=== PATIENT | male | born 1960 | race Caucasian/White ===

== ENCOUNTER 2022-10-30 16:05 | Emergency (ER) | payer MEDICAID ==
[~2022-10-30] VITALS: Ht 167.6 cm; Wt 66.7 kg
[2022-10-30 16:40] VITALS: BP 126/70; PULSE 107; RESP 22; TEMP 97.5; O2SAT 97
--- NOTE | 2022-10-30 16:54 | NUR ---
PT AMBULATED TO BED 11 WITH DAUGHTER
[2022-10-30] MEDS ORDERED: NACL 0.9% 1,000 ML IV ONE ×3 (16:55→21:25)
[2022-10-30 17:24] LABS: BASOPHILS % (AUTO) 0.3 % (0.0-2.0); HEMATOCRIT 35.6 % (36-52); HEMOGLOBIN 12.3 g/dL (12.0-18.0); LYMPHOCYTES % (AUTO) 14.3 % (20.5-51.1); MEAN CORPUSCULAR HEMOGLOBIN 34 pg (27-31); MEAN CORPUSCULAR HGB CONC 35 g/dL (33-37); MEAN CORPUSCULAR VOLUME 97.3 fL (80-94); MONOCYTES # (AUTO) 0.2 K/uL (0.8-1.0); MONOCYTES % (AUTO) 3.5 % (1.7-9.3); NEUTROPHILS # (AUTO) 5.5 K/uL (1.8-7.7); NEUTROPHILS % (AUTO) 81.9 % (42.2-75.2); PLATELET COUNT (AUTO) 113 K/uL (140-450); RED BLOOD CELL COUNT(AUTO) 3.66 MIL/uL (4.20-6.10); RED CELL DISTRIBUTION WIDTH 12.1 % (11.6-13.7); WHITE BLOOD COUNT (AUTO) 6.7 K/uL (4.8-10.8)
[2022-10-30 17:56] LABS: ANION GAP 17.4 (8-16); ASPARTATE AMINOTRANSFERASE 56 U/L (15-37); CARBON DIOXIDE 21.7 mmol/L (21-32); CHLORIDE 96 mmol/L (98-107); CREATININE 0.9 mg/dL (0.6-1.3); GFR ARICAN-AMERICAN 111 mL/min (>90); LIPASE 88 U/L (73-393); POTASSIUM 5.1 mmol/L (3.5-5.1); SODIUM SERUM 130 mmol/L (136-145); UREA NITROGEN, BLOOD 41 mg/dL (7-18)
[2022-10-30 18:03] LABS: ACETONE, SERUM NEGATIVE (NEGATIVE); GLUCOSE 435 mg/dL (74-106)
[2022-10-30] MEDS ORDERED: INSULIN REGULAR, HUMAN 100 UNIT/ML VIAL IVP ONE ×2 (18:55→21:25)
[2022-10-30 19:09] LABS: APPEARANCE,URINE CLEAR (CLEAR); BILIRUBIN,URINE NEGATIVE (NEGATIVE); BLOOD, URINE NEGATIVE (NEGATIVE); COLOR,URINE YELLOW (YELLOW); LEUKOCYTE ESTERASE ,URINE NEGATIVE (NEGATIVE); NITRITE, URINE NEGATIVE (NEGATIVE); UGLUCOSE 3+ (NEGATIVE)
--- NOTE | 2022-10-30 19:45 | NUR ---
ASSUMED CARE OF PT AT THIS TIME. PT IN POSITION OF COMFORT. A&OX4, RR EVEN AND UNLABORED. PT DENIES ANY PAIN OR NEEDS AT THIS TIME. FAMILY AT BEDSIDE. VSS.
--- NOTE | 2022-10-30 21:42 | NUR ---
PT RESTING, FAMILY AT BEDSIDE. CALL LIGHT WITHIN REACH. DENIES ANY PAIN OR NEEDS AT THIS TIME.
[2022-10-30] MEDS ORDERED: METF-1243 PO (22:52)
[2022-10-30 22:59] VITALS: BP 128/81; PULSE 108; RESP 16; TEMP 98; O2SAT 96
--- NOTE | 2022-10-30 22:59 | NUR ---
Patient discharged with v/s stable. Written and verbal after care instructions given and explained. Patient alert, oriented and verbalized understanding of instructions. Ambulatory with . All questions addressed prior to discharge. ID band removed. Patient advised to follow up with PMD. Rx of METFORMIN given. Patient educated on indication of medication including possible reaction and side effects. Opportunity to ask questions provided and answered.
== END 2022-10-30 22:59 | disposition home or self-care (01) ==
LOC: MED 16:05
DX: E11.65 Type 2 diabetes mellitus with hyperglycemia (principal); Z79.84 Long term (current) use of oral hypoglycemic drugs
CPT/HCPCS: 36415; 71045; 80053; 81003; 82009; 82803; 83690; 84484; 85025; 93005; 96361; 96372; 96374; 99285; G0482; J1815; J7030

== ENCOUNTER 2022-12-10 20:55 | Inpatient (IN) | payer MEDICAID ==
[~2022-12-10] VITALS: Ht 160 cm; Wt 68.9 kg
[~2022-12-10 20:55] MED LIST: METF-1243 PO
[2022-12-10 22:26] VITALS: BP 138/83; PULSE 94; RESP 20; TEMP 97.5; O2SAT 98
[2022-12-11 00:14] LABS: BASOPHILS % (AUTO) 0.3 % (0.0-2.0); EOSINOPHILS # (AUTO) 0.1 K/uL (0-0.4); EOSINOPHILS % (AUTO) 1.5 % (0.0-4.0); LYMPHOCYTES # (AUTO) 0.9 K/uL (2.0-11.5); LYMPHOCYTES % (AUTO) 17.8 % (20.5-51.1); MEAN CORPUSCULAR HEMOGLOBIN 22 pg (27-31); MEAN CORPUSCULAR HGB CONC 31 g/dL (33-37); MEAN CORPUSCULAR VOLUME 70.2 fL (80-94); MONOCYTES # (AUTO) 0.7 K/uL (0.8-1.0); MONOCYTES % (AUTO) 13.3 % (1.7-9.3); NEUTROPHILS # (AUTO) 3.5 K/uL (1.8-7.7); NEUTROPHILS % (AUTO) 67.1 % (42.2-75.2); PLATELET COUNT (AUTO) 222 K/uL (140-450); RED BLOOD CELL COUNT(AUTO) 2.52 MIL/uL (4.20-6.10); RED CELL DISTRIBUTION WIDTH 28.8 % (11.6-13.7); WHITE BLOOD COUNT (AUTO) 5.3 K/uL (4.8-10.8)
[2022-12-11 00:19] LABS: HEMATOCRIT 17.7 % (36-52); HEMOGLOBIN 5.5 g/dL (12.0-18.0)
[2022-12-11 00:41] LABS: ALBUMIN 3.3 g/dL (3.4-5.0); ANION GAP 12.9 (8-16); CARBON DIOXIDE 25.2 mmol/L (21-32); CREATININE 0.9 mg/dL (0.6-1.3); INR 1.05 (0.8-1.2); PARTIAL THROMBOPLASTIN TIME 26.3 secs (22-35.6); POTASSIUM 4.1 mmol/L (3.5-5.1); TOTAL BILIRUBIN 0.5 mg/dL (0.0-1.0); TOTAL PROTEIN, SERUM 7.3 g/dL (6.4-8.2)
[2022-12-11] MEDS ORDERED: PANTOPRAZOLE 40 MG INJ VIAL IVP ONE (04:05)
[2022-12-11] MEDS ORDERED: PANTOPRAZOLE 80 MG in NACL 0.9% 100 ML IVP SCH (04:05)
[2022-12-11] MEDS ORDERED: ACETAMINOPHEN 325 MG TAB PO PRN ×2 (05:20→05:30)
[2022-12-11] MEDS ORDERED: HYDROcodone/APAP 5/325 MG 1 TAB TAB PO PRN ×2 (05:20→05:30)
[2022-12-11] MEDS ORDERED: ONDANSETRON 4 MG/2 ML VIAL IVP PRN ×2 (05:20→05:30)
[2022-12-11] MEDS ORDERED: MORPHINE SULFATE 2 MG/ML SYR IVP PRN ×2 (05:20→05:30)
[2022-12-11] MEDS ORDERED: NACL 0.9% 1,000 ML IV SCH (05:20)
[2022-12-11 08:00] VITALS: PULSE 79
[2022-12-11] MEDS ORDERED: PANTOPRAZOLE 40 MG INJ VIAL IVP SCH (09:00)
[2022-12-11 10:01] VITALS: PULSE 70; RESP 20; O2SAT 99
[2022-12-11 12:00] VITALS: BP 123/65; PULSE 68; PULSE 81; RESP 20; TEMP 97.1; O2SAT 99
[2022-12-11] MEDS: PANTOPRAZOLE 40 MG INJ VIAL IVP SCH ×2 (12:18→20:46)
[2022-12-11 16:00] VITALS: BP 128/68; PULSE 78; RESP 19; TEMP 98.8; O2SAT 98
[2022-12-11] MEDS: NACL 0.9% 1,000 ML IV SCH ×2 (17:35→17:36)
[2022-12-11 20:00] VITALS: BP 130/75; PULSE 75; PULSE 76; RESP 17; TEMP 98.1; O2SAT 97
[2022-12-12] VITALS (10 sets, daily range): BP systolic 128–159; BP diastolic 74–87; PULSE 62–100; RESP 16–19; TEMP 96.9–98.9; O2SAT 94–98
[2022-12-12] MEDS: NACL 0.9% 1,000 ML IV SCH ×3 (01:30→20:14)
[2022-12-12] MEDS: PANTOPRAZOLE 40 MG INJ VIAL IVP SCH ×2 (09:32→20:59)
[2022-12-12 10:34] LABS: EOSINOPHILS # (AUTO) 0.1 K/uL (0-0.4); LYMPHOCYTES # (AUTO) 0.7 K/uL (2.0-11.5); MONOCYTES # (AUTO) 0.7 K/uL (0.8-1.0); RED CELL DISTRIBUTION WIDTH 28.1 % (11.6-13.7); WHITE BLOOD COUNT (AUTO) 4.4 K/uL (4.8-10.8)
[2022-12-12 10:40] LABS: BASOPHILS % (AUTO) 0.9 % (0.0-2.0); EOSINOPHILS % (AUTO) 1.4 % (0.0-4.0); LYMPHOCYTES % (AUTO) 16.5 % (20.5-51.1); MEAN CORPUSCULAR HEMOGLOBIN 23 pg (27-31); MEAN CORPUSCULAR HGB CONC 31 g/dL (33-37); MEAN CORPUSCULAR VOLUME 71.9 fL (80-94); MONOCYTES % (AUTO) 14.9 % (1.7-9.3); NEUTROPHILS # (AUTO) 2.9 K/uL (1.8-7.7); NEUTROPHILS % (AUTO) 66.3 % (42.2-75.2); PLATELET COUNT (AUTO) 208 K/uL (140-450); RED BLOOD CELL COUNT(AUTO) 2.91 MIL/uL (4.20-6.10)
[2022-12-12 10:45] LABS: HEMOGLOBIN 6.6 g/dL (12.0-18.0)
[2022-12-12 10:52] LABS: ANION GAP 12.8 (8-16); CARBON DIOXIDE 22.9 mmol/L (21-32); CREATININE 0.8 mg/dL (0.6-1.3); POTASSIUM 3.7 mmol/L (3.5-5.1)
[2022-12-12 10:55] LABS: MAGNESIUM 2.1 mg/dL (1.8-2.4); PHOSPHORUS 3.9 mg/dL (2.5-4.9)
[2022-12-12] MEDS ORDERED: SODIUM FERRIC GLUCONATE 125 MG in NACL 0.9% 100 ML IV SCH (11:00)
[2022-12-12] MEDS ORDERED: MIDAZOLAM 5 MG/5 ML VIAL ONE (11:33)
[2022-12-12] MEDS ORDERED: fentaNYL citrate 0.05 MG/ML VIAL ONE (11:33)
[2022-12-12] MEDS: LACTULOSE 20 GM/30 ML UDC PO SCH ×3 (14:53→20:59)
[2022-12-12] MEDS: SENNA 8.6 MG TAB PO SCH ×2 (14:54→16:49)
[2022-12-12] MEDS: POLYETHYLENE GLYCOL 17 GM/PKT PO SCH ×2 (14:54→16:49)
[2022-12-12 20:07] LABS: BASOPHILS % (AUTO) 0.6 % (0.0-2.0); EOSINOPHILS # (AUTO) 0.1 K/uL (0-0.4); EOSINOPHILS % (AUTO) 1.2 % (0.0-4.0); HEMOGLOBIN 8.3 g/dL (12.0-18.0); LYMPHOCYTES # (AUTO) 0.7 K/uL (2.0-11.5); LYMPHOCYTES % (AUTO) 14.3 % (20.5-51.1); MEAN CORPUSCULAR HEMOGLOBIN 24 pg (27-31); MEAN CORPUSCULAR HGB CONC 32 g/dL (33-37); MONOCYTES # (AUTO) 0.7 K/uL (0.8-1.0); NEUTROPHILS # (AUTO) 3.6 K/uL (1.8-7.7); NEUTROPHILS % (AUTO) 69.9 % (42.2-75.2); PLATELET COUNT (AUTO) 207 K/uL (140-450); RED BLOOD CELL COUNT(AUTO) 3.51 MIL/uL (4.20-6.10); RED CELL DISTRIBUTION WIDTH 27.8 % (11.6-13.7); WHITE BLOOD COUNT (AUTO) 5.1 K/uL (4.8-10.8)
[2022-12-12 20:20] LABS: CALCIUM 8.3 mg/dL (8.5-10.1); CARBON DIOXIDE 22.6 mmol/L (21-32); CREATININE 0.8 mg/dL (0.6-1.3); POTASSIUM 3.6 mmol/L (3.5-5.1)
[2022-12-12 20:26] LABS: ANISOCYTOSIS 2+; HYPOCHROMASIA 2+
[2022-12-12] MEDS: PROPRANOLOL 20 MG TAB PO SCH (20:59)
[2022-12-12] MEDS ORDERED: LACTULOSE 20 GM/30 ML UDC PO SCH (21:00)
[2022-12-13] VITALS (10 sets, daily range): BP systolic 131–157; BP diastolic 72–87; PULSE 68–85; RESP 17–19; TEMP 96.4–98.5; O2SAT 97–99
[2022-12-13] MEDS: NACL 0.9% 1,000 ML IV SCH ×3 (05:39→22:29)
[2022-12-13 05:56] LABS: BASOPHILS % (AUTO) 0.7 % (0.0-2.0); EOSINOPHILS % (AUTO) 0.9 % (0.0-4.0); HEMATOCRIT 25.5 % (36-52); HEMOGLOBIN 8.1 g/dL (12.0-18.0); LYMPHOCYTES # (AUTO) 0.9 K/uL (2.0-11.5); LYMPHOCYTES % (AUTO) 17.7 % (20.5-51.1); MEAN CORPUSCULAR HEMOGLOBIN 23 pg (27-31); MEAN CORPUSCULAR HGB CONC 32 g/dL (33-37); MEAN CORPUSCULAR VOLUME 73.3 fL (80-94); MONOCYTES # (AUTO) 0.7 K/uL (0.8-1.0); MONOCYTES % (AUTO) 14.7 % (1.7-9.3); NEUTROPHILS # (AUTO) 3.2 K/uL (1.8-7.7); PLATELET COUNT (AUTO) 216 K/uL (140-450); RED BLOOD CELL COUNT(AUTO) 3.48 MIL/uL (4.20-6.10); RED CELL DISTRIBUTION WIDTH 27.6 % (11.6-13.7); WHITE BLOOD COUNT (AUTO) 4.9 K/uL (4.8-10.8)
[2022-12-13 06:14] LABS: ANION GAP 15.6 (8-16); CALCIUM 8.3 mg/dL (8.5-10.1); CARBON DIOXIDE 20.8 mmol/L (21-32); CREATININE 0.9 mg/dL (0.6-1.3); POTASSIUM 3.4 mmol/L (3.5-5.1)
[2022-12-13] MEDS: PANTOPRAZOLE 40 MG INJ VIAL IVP SCH ×2 (09:20→20:32)
[2022-12-13] MEDS: SENNA 8.6 MG TAB PO SCH ×3 (09:20→17:42)
[2022-12-13] MEDS: POLYETHYLENE GLYCOL 17 GM/PKT PO SCH ×3 (09:20→17:43)
[2022-12-13] MEDS: FUROSEMIDE 20 MG TAB PO SCH (09:21)
[2022-12-13] MEDS: LACTULOSE 20 GM/30 ML UDC PO SCH ×4 (09:21→20:32)
[2022-12-13] MEDS: SPIRONOLACTONE 50 MG TAB PO SCH (09:21)
[2022-12-13] MEDS: PROPRANOLOL 20 MG TAB PO SCH ×2 (09:21→20:32)
[2022-12-13] MEDS ORDERED: POTASSIUM CHLORIDE 40 MEQ, LIDOCAINE 1% 25 MG in NACL 0.9% 250 ML IV SCH (09:30)
[2022-12-13] MEDS ORDERED: SODIUM FERRIC GLUCONATE 125 MG in NACL 0.9% 100 ML IV SCH (15:00)
[2022-12-14] VITALS: BP 121/76; PULSE 74; PULSE 77; RESP 18; TEMP 98.2; O2SAT 95
[2022-12-14 03:56] VITALS: PULSE 87
[2022-12-14 04:00] VITALS: BP 140/74; PULSE 71; RESP 18; TEMP 98.4; O2SAT 96
[2022-12-14 05:44] LABS: BASOPHILS # (AUTO) 0.1 K/uL (0.00-0.22); BASOPHILS % (AUTO) 0.8 % (0.0-2.0); EOSINOPHILS # (AUTO) 0.1 K/uL (0-0.4); EOSINOPHILS % (AUTO) 1.5 % (0.0-4.0); HEMATOCRIT 23.4 % (36-52); HEMOGLOBIN 7.5 g/dL (12.0-18.0); LYMPHOCYTES # (AUTO) 1.2 K/uL (2.0-11.5); LYMPHOCYTES % (AUTO) 17.7 % (20.5-51.1); MEAN CORPUSCULAR HEMOGLOBIN 23 pg (27-31); MEAN CORPUSCULAR HGB CONC 32 g/dL (33-37); MEAN CORPUSCULAR VOLUME 72.6 fL (80-94); MONOCYTES # (AUTO) 0.9 K/uL (0.8-1.0); MONOCYTES % (AUTO) 13.1 % (1.7-9.3); NEUTROPHILS # (AUTO) 4.6 K/uL (1.8-7.7); NEUTROPHILS % (AUTO) 66.9 % (42.2-75.2); PLATELET COUNT (AUTO) 175 K/uL (140-450); RED BLOOD CELL COUNT(AUTO) 3.22 MIL/uL (4.20-6.10); RED CELL DISTRIBUTION WIDTH 28.1 % (11.6-13.7); WHITE BLOOD COUNT (AUTO) 6.9 K/uL (4.8-10.8)
[2022-12-14 05:45] LABS: ANION GAP 14.8 (8-16); CALCIUM 8.2 mg/dL (8.5-10.1); CARBON DIOXIDE 22.6 mmol/L (21-32); CREATININE 0.8 mg/dL (0.6-1.3); POTASSIUM 3.4 mmol/L (3.5-5.1)
[2022-12-14 08:00] VITALS: BP 152/78; PULSE 74; RESP 18; TEMP 98.8; O2SAT 98
[2022-12-14] MEDS ORDERED: POTASSIUM CHLORIDE 10 MEQ TABER PO SCH (08:06)
[2022-12-14] MEDS ORDERED: PANT40EC PO (08:34)
[2022-12-14] MEDS ORDERED: FERR324T11 PO (08:35)
[2022-12-14] MEDS: LACTULOSE 20 GM/30 ML UDC PO SCH (09:00)
[2022-12-14] MEDS: SENNA 8.6 MG TAB PO SCH (09:00)
[2022-12-14] MEDS: POLYETHYLENE GLYCOL 17 GM/PKT PO SCH (09:00)
[2022-12-14] MEDS: PANTOPRAZOLE 40 MG INJ VIAL IVP SCH (09:40)
[2022-12-14] MEDS: FUROSEMIDE 20 MG TAB PO SCH (09:43)
[2022-12-14] MEDS: PROPRANOLOL 20 MG TAB PO SCH (09:44)
[2022-12-14] MEDS: SPIRONOLACTONE 50 MG TAB PO SCH (09:44)
== END 2022-12-14 12:00 | disposition home or self-care (01) | DRG 280 ==
LOC: MED 20:55 → MTU 12-11 05:24
PROVIDERS: ADMIT Student in an Organized Health Care Education/Training Program; ATTEND Student in an Organized Health Care Education/Training Program
PROC: 30233N1 Transfusion of Nonautologous Red Blood Cells into Peripheral Vein, Percutaneous Approach (ICD-10-PCS; 2022-12-12)
PROC: 06L38CZ Occlusion of Esophageal Vein with Extraluminal Device, Via Natural or Artificial Opening Endoscopic (ICD-10-PCS; principal; 2022-12-12 11:50)
DX: K70.31 Alcoholic cirrhosis of liver with ascites (principal); E44.1 Mild protein-calorie malnutrition; I85.10 Secondary esophageal varices without bleeding; E83.51 Hypocalcemia; E11.9 Type 2 diabetes mellitus without complications; D50.0 Iron deficiency anemia secondary to blood loss (chronic); F10.10 Alcohol abuse, uncomplicated; I10 Essential (primary) hypertension; I25.10 Atherosclerotic heart disease of native coronary artery without angina pectoris; Z87.891 Personal history of nicotine dependence
CPT/HCPCS: 36415; 36430; 80048; 80053; 82948; 83735; 84100; 85025; 85610; 85730; 86886; 86900; 86901; 86920; 87081; 96374; 96375; 99291; C9113; J2001; J2250; J2916; J3010; J3480; J7030; P9016